=== PATIENT | male | born 1995 | race Caucasian/White ===

== ENCOUNTER 2020-05-12 14:44 | Emergency (ER) | payer OTHER, SELFPAY ==
[2020-05-12 14:54] VITALS: BP 137/81; PULSE 74; RESP 16; TEMP 36.7; O2SAT 96; BMI 29.7
--- NOTE | 2020-05-12 15:31 | XRR_ITS ---
PROCEDURE INFORMATION: Exam: XR Left Hand Exam date and time: 05/12/2020 3:52 PM Age: 25 years old Clinical indication: Injury or trauma; Injury history: Caught thumb in an auger; Initial encounter; Crushing; Hand; Left; Injury date: 05/12/20; Additional info: Trauma thumb TECHNIQUE: Imaging protocol: XR Left hand. Views: 3 or more views. COMPARISON: No relevant prior studies available. FINDINGS: Bones/joints: There is no evidence for acute fracture or malalignment. Soft tissues: Normal. XR/XR hand LT min 3V* [id number] IMPRESSION: No acute findings.
--- NOTE | 2020-05-12 15:53 | W.ED.EXTPRO ---
HPI - Extremity Problem General: Chief complaint: Extremity Injury, Upper Stated complaint: L thumb injury Time Seen by Provider: 05/12/20 15:18 History of Present Illness: HPI Narrative: Patient got left thumb cutting grain big auger today was seen at the clinic down [place] they referred him up here Complaint: extremity pain Onset (ago): hour(s) Pain Consistency: constant Location: left and upper extremity Quality: aching Associated symptoms: Reports no associated symptoms; Deny chest pain, fever(s) or rash Review of Systems Const: Denies: fever(s), chills or body aches Eyes: Denies: change in vision or blurry vision ENMT: Denies: throat pain or nasal congestion Card: Denies: chest pain or dyspnea on exertion Resp: Denies: dyspnea, productive cough or non-productive cough GI: Denies: abdominal pain, nausea or vomiting : Denies: difficulty urinating Musc: Denies: extremity pain Skin/Breast: Reports: other (Left thumb laceration staying from a grain bin auger); Denies: rash Neuro: Denies: headache(s) Psych: Denies: anxiety or depression Devon/Lymph: Denies: easy bruising PFSH ED PFSH: Social History (Updated 05/12/20 @ 14:59 by Matthias Dsouza RN) Smoking and tobacco status: heavy tobacco smoker Alcohol intake: never Substance/Drug Use: never Physical Exam Const: COMMON NORMALS: no acute distress, average body habitus and patient oriented x3 HENMT: COMMON NORMALS: normocephalic HEAD & SCALP: normal to inspection and normocephalic FACE & SINUS: normal facial exam Eye: COMMON NORMALS: conjunctivae normal GENERAL EYE: appearance normal, both eyes and all related structures CONJUNCTIVA: Yes conjunctivae normal Neck/C-Spine: COMMON NORMALS: no JVD Chest: COMMONS NORMALS: normal inspection of the chest Resp: COMMON NORMALS: normal respiratory effort and clear to auscultation bilaterally AUSCULTATION: clear to auscultation bilaterally Cardio: COMMON NORMALS: no JVD, regular rate and regular rhythm RATE: regular rate RHYTHM: regular rhythm GI: COMMON NORMALS: Normal to inspection, nondistended, normoactive bowel sounds present Extremity: COMMON NORMALS: normal to inspection and full ROM Neuro: COMMON NORMALS: patient oriented x3 Skin: NARRATIVE SKIN EXAM: Irregular laceration to the palmar surface of the base of left thumb extending up to the MIP joint. Course Vital Signs: Vital signs: Vital Signs Temperature 98.1 F 05/12/20 14:54 Pulse Rate 74 05/12/20 14:54 Respiratory Rate 16 05/12/20 14:54 Blood Pressure 137/81 05/12/20 14:54 Pulse Oximetry 96 05/12/20 14:54 Discharge Plan Discharge Prescriptions: No Action No Known Home Medications RF: 0 Coding Level of Care Code ED Lime Sludge Kiln Operator for Nidhi Pelayo
[2020-05-12] MEDS: HYDROcodone-acetaminophen 7.5-325 mg Tablet 1 TAB PO (16:45)
[2020-05-12 17:08] VITALS: BP 126/85; PULSE 71; RESP 16; O2SAT 99
[2020-05-12] MEDS: tetanus-dipt-pertussis 0.5 mL SDV IM (17:19)
[2020-05-12] MEDS: lidocaine 1% INJ 20 mL 4 ML INTRADERMA (17:21)
--- NOTE | 2020-05-12 17:22 | PC.NURSE ---
BLACK COLOR RING FOUND IN ROOM AFTER PT LEFT ER ATTEMPTED TO CALL NO ANSWER AND UNABLE TO LEAVE MESSAGE. WILL CONTINUE TO TRY CONTACT PT
== END 2020-05-12 17:11 | disposition home or self-care (01) ==
PROVIDERS: Emergency Provider Nurse Practitioner Family
DX: S61.012A Laceration without foreign body of left thumb without damage to nail, initial encounter (principal); Z23 Encounter for immunization; W30.89XA Contact with other specified agricultural machinery, initial encounter; F17.210 Nicotine dependence, cigarettes, uncomplicated
CPT/HCPCS: 12345; 73130; 90471; 90715; 96372; 99281; 99283

== ENCOUNTER 2020-05-13 13:23 | Emergency (ER) | payer OTHER, SELFPAY ==
[2020-05-13 13:40] VITALS: BP 143/85; PULSE 83; RESP 16; TEMP 37.4; O2SAT 96; BMI 29.7
--- NOTE | 2020-05-13 14:08 | CT_ITS ---
WS: [id number] NONCONTRAST CT OF THE LEFT HAND. TECHNIQUE: Noncontrast CT left hand with coronal and sagittal reformatted images. CLINICAL INFORMATION: trauma swelling and pain COMPARISON: May 12, 2020 DLP: 354.[address] scans at [facility] use at least one of these dose optimization techniques: automat ed exposure control; mA and/or kV adjustment per patient size (includes targeted exams where dose is matched to clinical indication); or iterative reconstruction. FINDINGS: Normal anatomic alignment. No acute fractures. Mild soft tissue edema involving the first digit. No e vidence of drainable abscess or fluid collection. Distal radius and ulna are normal in appearance. Normal radiocarpal joint. Normal scaphoid and lunate . Metacarpals are normal in appearance. Attempted notification Yaw Jean Baptiste DO at 05/13/2020 3:[address]/CT hand LT w con [id number] IMPRESSION: 1. Soft tissue edema first digit. No acute fractures. 2. No visualized foreign bodies. 3. Normal anatomic alignment. Normal distal radius and ulna. 4. Normal scaphoid.
--- NOTE | 2020-05-13 14:29 | ED_ITS ---
HPI - Extremity Problem General: Chief complaint: Extremity Problem,Nontraumatic Stated complaint: left hand pain Time Seen by Provider: 05/13/20 13:49 History of Present Illness: HPI Narrative: 25-year-old male seen yesterday with a thumb laceration. He was seen yesterday returns complaining of swelling and pain. He has not had any drainage from the wound. The some lacerations on the medial aspect of the left thumb. There is been no drainage no redness he denies fever. MD Complaint: extremity pain and extremity swelling Onset (ago): hour(s) Pain Consistency: constant Location: left Quality: aching Radiation: proximal and other (Pain also radiates to second third fingers) Relieving factors: cold therapy and elevation Exacerbating factors: exertion Associated symptoms: Deny chest pain, fever(s), rash or short of breath Review of Systems Const: Denies: fever(s) Card: Denies: chest pain, edema, dyspnea on exertion or orthopnea Resp: Denies: dyspnea, productive cough or non-productive cough GI: Denies: abdominal pain, nausea, vomiting, hematemesis, coffee ground emesis, diarrhea, constipation, bloating, hematochezia or melena : Denies: flank pain, dysuria, urinary frequency or urinary urgency Skin/Breast: Denies: rash or pruritus PFSH ED PFSH: Social History Smoking and tobacco status: heavy tobacco smoker Alcohol intake: never Physical Exam Const: COMMON NORMALS: no acute distress GENERAL APPEARANCE: cooperative and comfortable ORIENTATION/CONSCIOUSNESS: Yes awake, Yes oriented to person, Yes oriented to place and Yes oriented to time HENMT: COMMON NORMALS: normocephalic and atraumatic HEAD & SCALP: normocephalic and atraumatic Eye: COMMON NORMALS: Equal, round and reactive pupils present, EOMs intact bilaterally, conjunctivae normal and no scleral icterus CONJUNCTIVA: Yes conjunctivae normal PUPIL: Yes Equal, round and reactive pupils present Neck/C-Spine: COMMON NORMALS: full ROM, no lymphadenopathy, supple and no JVD Lymph: LYMPHATIC: no lymphadenopathy noted and no lymphedema noted Resp: COMMON NORMALS: normal respiratory effort, No retractions, No use of accessory muscles and clear to auscultation bilaterally AUSCULTATION: clear to auscultation bilaterally Cardio: COMMON NORMALS: no JVD, regular rate, regular rhythm and No murmurs present (Cardio) RATE: regular rate RHYTHM: regular rhythm GI: COMMON NORMALS: Soft to palpation and No hepatosplenomegaly present AUSCULTATION: Yes normoactive bowel sounds PALPATION: Yes Soft to palpation, No Tenderness to palpation present (GI), No Guarding due to palpation present (GI) and Yes No hepatosplenomegaly present OTHER: Thenar eminence of the left hand is swollen almost fluctuant extremely tender he has no pain with passive range of motion at the wrist or flexion or extension of the fingers. There is no drainage no lymphadenopathy suture line is intact and in place. Extremity: COMMON NORMALS: normal to inspection, capillary refill normal, no clubbing, cyanosis or edema, no calf tenderness and no pedal edema Neuro: SENSORIUM/ORIENTATION: Yes oriented to person, Yes oriented to place and Yes oriented to time Skin: COMMON NORMALS: no rashes or lesions noted GENERAL SKIN EXAM: no rashes or lesions noted Course Vital Signs: Vital signs: Vital Signs Temperature 99.3 F 05/13/20 13:40 Pulse Rate 72 05/13/20 16:49 Respiratory Rate 17 05/13/20 16:49 Blood Pressure 140/62 05/13/20 16:49 Pulse Oximetry 98 05/13/20 16:49 MDM - Extremity (Nontraumatic) 2 MDM Narrative: Medical decision making narrative: CT reviewed. Patient does have an elevated white count and currently is on Augmentin. There is no redness or erythema but there is moderate swelling throughout the thenar eminence and is extremely tender to the touch it improves when we ask him to keep it elevated in the exam room. Think he probably just needs to keep this elevated there is not excessive excessive amount of tension on the sutures. Advised him to use a sling to keep the hand above the level of the elbow. Is here the Augmentin if has any drainage or redness return immediately follow-up in another 6 to 9 days for suture removal if has further problems return. Discharge Plan Discharge Patient Disposition: Home Clinical Impression: Laceration of thumb, left Condition: Stable Prescriptions: New hydrocodone-acetaminophen 5-325 mg tablet 1 tab PO Q6H PRN (Reason: pain) Qty: 20 RF: 0 No Action amoxicillin-pot clavulanate [Augmentin] 875-125 mg tablet 1 tab PO BID Qty: 14 RF: 0 tramadol 50 mg tablet 50 mg PO Q6H PRN (Reason: pain) Qty: 14 RF: 0 Referrals: Adeola Cross, DUPLICATING MACHINE SERVICER-C [Primary Care Provider] - Discharge Date/Time: 05/13/20 16:30 Coding Level of Care Code ED Utility Assembler for Chg Fwd Exam Comprehensive
[2020-05-13] MEDS: HYDROcodone-acetaminophen 10-325 mg Tablet 1 TAB PO (14:44)
[2020-05-13] MEDS: iohexol 300 mg/mL 100 mL Btl IV (15:11)
[2020-05-13 16:49] VITALS: BP 140/62; PULSE 72; RESP 17; O2SAT 98
== END 2020-05-13 16:30 | disposition home or self-care (01) ==
PROVIDERS: Emergency Provider Family Medicine; PCP Nurse Practitioner
DX: S61.012A Laceration without foreign body of left thumb without damage to nail, initial encounter (principal); F17.210 Nicotine dependence, cigarettes, uncomplicated; X58.XXXA Exposure to other specified factors, initial encounter
CPT/HCPCS: 12345; 73201; 99282; 99283; Q9967

== ENCOUNTER 2020-05-17 12:03 | Emergency (ER) | payer OTHER, SELFPAY ==
[2020-05-17 12:16] VITALS: BMI 29.0
[2020-05-17 12:19] VITALS: BP 174/109; PULSE 111; RESP 18; TEMP 36.7; O2SAT 98
--- NOTE | 2020-05-17 12:20 | ED_ITS ---
HPI - General Adult General: Chief complaint: General Medical Stated complaint: post finger lac complications Time Seen by Provider: 05/17/20 12:19 History of Present Illness: HPI narrative: 25-year-old male seen within the last week for laceration on his thumb. See him back couple of days later he is reporting a lot of swelling we CT did just showed inflammation there is no evidence of abscess or fracture. We continue to monitor Augmentin he was seen yesterday at his primary care office they reported redness and swelling in the note I switched him from Augmentin to clindamycin to cover better for MRSA. He presents today continued to complain of swelling and pain. Is not been any drainage from the wound. Patient is quite frustrated with his course since the initial injury. Onset (ago): day(s) Location: left and upper extremity (Hand) Radiation: proximal Quality: aching Pain Consistency: constant Associated symptoms: Reports malaise and nausea; Deny chest pain, cough, dyspnea, fevers/chills, rash or seizures Review of Systems Const: Reports: malaise Card: Denies: chest pain Resp: Denies: dyspnea GI: Reports: nausea Skin/Breast: Denies: rash [facility] ED PFSH: Medical History Cellulitis of left thumb Social History Smoking and tobacco status: heavy tobacco smoker Alcohol intake: never Physical Exam Const: COMMON NORMALS: no acute distress GENERAL APPEARANCE: cooperative and comfortable ORIENTATION/CONSCIOUSNESS: Yes awake, Yes oriented to person, Yes oriented to place and Yes oriented to time HENMT: COMMON NORMALS: normocephalic and atraumatic HEAD & SCALP: normocephalic and atraumatic Eye: COMMON NORMALS: Equal, round and reactive pupils present, EOMs intact bilaterally, conjunctivae normal and no scleral icterus CONJUNCTIVA: Yes conjunctivae normal PUPIL: Yes Equal, round and reactive pupils present Lymph: LYMPHATIC: no lymphadenopathy noted and no lymphedema noted OTHER: There is no epitrochlear lymphadenopathy in the left hand Extremity: OTHER: Thumb and thenar eminence show significant amount of swelling and ecchymosis particularly around the area of the laceration. There is no drainage from the wound it is not bright red or inflamed and is not indurated there is no lymphatic streaking. Neuro: SENSORIUM/ORIENTATION: Yes oriented to person, Yes oriented to place and Yes oriented to time Course Vital Signs: Vital signs: Vital Signs Temperature 98.1 F 05/17/20 12:19 Pulse Rate 111 H 05/17/20 12:19 Respiratory Rate 18 05/17/20 12:19 Blood Pressure 174/109 05/17/20 12:19 Pulse Oximetry 98 05/17/20 12:19 MDM - General Adult MDM Narrative: Medical decision making narrative: Patient does obviously have swelling I think this may be even a little more swelling than the last time we seen him. Is restricted mostly to the thumb and thenar eminence. It is not clear that it is all from infection however I suspect a lot of it is from crush injury he does not have any drainage she does not have any lymphadenopathy or lymphatic streaking. He has been on Augmentin and he was changed from Augmentin to clindamycin yesterday to cover better for MRSA. Given the length of time since the original injury I do not think he has MRSA probably would have much more striking physical exam findings. Initially told the patient I did not think it appeared to be infected but that we would check it out. This frustrated him greatly and he began arguing that it likely was infected. I tried to explain to him that we will check that out as well but that we should repeat the CT I had written pain medications form as well as blood cultures and other laboratory tests. My concern is that we continue to treat that that this as it if it is infected when in fact there is something else going on I suspect a lot of this is swelling from the crush injury and we may need to remove the sutures. Patient became quite angry and left AMA. I did warn him that he could lose function of his thumb which would be quite significant. The plan was to evaluate him again if no finding was made to refer him directly from the ER to hand surgery including sending him to [facility] to be seen by the on-call hand surgeon if necessary. Patient does not wish to wait for any kind of evaluation left AGAINST MEDICAL ADVICE even after being warned of the potential for deterioration. We did advise him we would be happy to see him back at any point if he wanted to come back to the emergency room. Discharge Plan Discharge Patient Disposition: Left Against Medical Advice Clinical Impression: Laceration of thumb, left Prescriptions: No Action lidocaine HCl [Xylocaine] 10 mg/mL (1 %) solution 1 ml IM ONCE Qty: 1 RF: 0 clindamycin HCl 300 mg capsule 300 mg PO QID PRN (Reason: cellulitis) 10 Days Qty: 40 RF: 0 hydrocodone-acetaminophen 5-325 mg tablet 1 tab PO Q6H PRN (Reason: pain) Qty: 20 RF: 0 tramadol 50 mg tablet 50 mg PO Q6H PRN (Reason: pain) Qty: 14 RF: 0 Referrals: Adeola Cross, ELECTRICAL ENGINEERING DRAFTING OFFICER-C [Primary Care Provider] - Activity Restrictions/Additional Instructions: Patient left before we are able to complete discharge paperwork. He was advised that he could return anytime if he wished we would be glad to see him back and evaluate him further. Interventions: ED Discharge Assessment Last Done: 05/17/20 12:42 ED Charges Last Done: 05/17/20 12:42 Discharge Date/Time: 05/17/20 12:42 Coding Level of Care Code ED Superintendent Distribution for Nidhi Pelayo
== END 2020-05-17 12:42 | disposition left against medical advice (07) ==
LOC: ER 12:23
PROVIDERS: Emergency Provider Family Medicine; PCP Nurse Practitioner
DX: S61.012A Laceration without foreign body of left thumb without damage to nail, initial encounter (principal); Z53.21 Procedure and treatment not carried out due to patient leaving prior to being seen by health care provider; F17.210 Nicotine dependence, cigarettes, uncomplicated; X58.XXXA Exposure to other specified factors, initial encounter
CPT/HCPCS: 12345; 99281; 99282

== ENCOUNTER 2020-06-24 09:18 | Outpatient (RCR) | payer OTHER, SELFPAY | END 2020-07-14 23:59 | disposition home or self-care (01) | LOC: SOT 09:18 | PROVIDERS: PCP Nurse Practitioner; Referring Provider Orthopaedic Surgery Hand Surgery; Visit Provider Orthopaedic Surgery Hand Surgery | DX: L02.512 Cutaneous abscess of left hand (principal) | CPT/HCPCS: 97018; 97035; 97110; 97140; 97166; 97168 ==

== ENCOUNTER 2020-07-15 06:00 | Outpatient (RCR) | payer OTHER, SELFPAY | END 2020-08-14 23:59 | disposition home or self-care (01) | LOC: SOT 06:00 | PROVIDERS: PCP Nurse Practitioner; Referring Provider Orthopaedic Surgery Hand Surgery; Visit Provider Orthopaedic Surgery Hand Surgery | DX: L02.512 Cutaneous abscess of left hand (principal) | CPT/HCPCS: 97018; 97035; 97110 ==

== ENCOUNTER 2020-08-15 06:00 | Outpatient (RCR) | payer OTHER, SELFPAY | END 2020-08-16 23:00 | disposition home or self-care (01) | LOC: SOT 06:00 | PROVIDERS: PCP Nurse Practitioner; Visit Provider Orthopaedic Surgery Hand Surgery | DX: L02.512 Cutaneous abscess of left hand (principal) | CPT/HCPCS: 97110 ==

== ENCOUNTER → 2020-11-18 14:58 | Outpatient (BNVA) | payer OTHER, SELFPAY | PROVIDERS: PCP Nurse Practitioner Family; Visit Provider Nurse Practitioner Family | DX: J06.9 Acute upper respiratory infection, unspecified (principal); Z20.822 Contact with and (suspected) exposure to COVID-19 | CPT/HCPCS: 87635 ==

== ENCOUNTER → 2021-10-21 10:46 | Outpatient (BNVA) | payer OTHER, SELFPAY | PROVIDERS: PCP Nurse Practitioner Family; Visit Provider Nurse Practitioner Family | DX: G43.909 Migraine, unspecified, not intractable, without status migrainosus (principal); R10.31 Right lower quadrant pain; Z13.6 Encounter for screening for cardiovascular disorders | CPT/HCPCS: 80053; 80061; 81000; 82306; 82607; 83735; 84443; 85025 ==

== ENCOUNTER 2021-12-13 14:00 | Outpatient (CLI) | payer OTHER, SELFPAY ==
--- NOTE | 2021-12-13 14:18 | CT_ITS ---
WS: [id number] CT ABDOMEN AND PELVIS WITH CONTRAST HISTORY: R10.31 - Right lower quadrant pain TECHNIQUE: Imaging performed of the abdomen and pelvis with IV contrast. Single phase imaging of the abdomen. Coronal and sagittal reformats are submitted. All CT scans at [facility] use at [address] one of these dose optimization techniques: automated exposure control; mA and/or kV adjustment per patient size (includes targeted exams where dose is matched to clinical indication); or iterative re construction. IV CONTRAST: Omnipaque 300; 95 mL IV. Oral contrast: Yes. DLP: 947.35 mGy.cm COMPARISON: 07/09/2016 Lower thorax: Lung bases are clear. Heart is normal size. No hiatal hernia. Liver/biliary system: Normal size with no intrahepatic dilatation. Gallbladder: Normal. No gallstones or wall thickening. No pericholecystic fluid. Pancreas: Normal size pancreas and pancreatic duct. No adjacent inflammation. Spleen: Normal size spleen. No mass or infarct. Adrenal glands: Normal. Right kidney: Mild anterior rotation of the RIGHT kidney. No obstruction or mass. Left kidney: Normal. Aorta: Normal. Lymphadenopathy: None. Free fluid: None. GI tract: Stomach is nondistended. No small bowel obstruction. Normal appendix. No submucosal thicken ing or edema. There are several scattered diverticula in the descending and sigmoid colon. No acute i nflammation or diverticulitis. Abdominal wall: Unremarkable abdominal wall. No hernia. Pelvis: No free fluid or adenopathy within the pelvis. Bones: Unremarkable. CT/CT abdomen pelvis w con* [id number] IMPRESSION: 1. No acute abdominal or pelvic abnormalities. 2. Normal appendix. 3. There are a few scattered diverticula in the descending and sigmoid colon. No acute diverticulitis.
[2021-12-13] MEDS: iohexol 300 mg/mL 100 mL Btl IV (15:44)
[2021-12-13] MEDS: iohexol 300 mg/mL 50 mL Btl PO (15:44)
== END 2021-12-13 14:01 | disposition home or self-care (01) ==
LOC: RAD 14:00
PROVIDERS: PCP Nurse Practitioner Family; Visit Provider Nurse Practitioner Family
DX: R10.31 Right lower quadrant pain (principal)
CPT/HCPCS: 74177

== ENCOUNTER 2021-12-14 13:50 | Outpatient (CLI) | payer OTHER, SELFPAY ==
--- NOTE | 2021-12-14 14:04 | MR_ITS ---
WS: [id number] MRI BRAIN WITH AND WITHOUT CONTRAST HISTORY: G43.909 - Migraine, unspecified, not intractable, family history of brain tumor. COMPARISON: None available. TECHNIQUE: Multiplanar imaging performed through the brain with MultiHance 17 ml's IV. No acute infarcts are seen. Ramos-white matter differentiation is well preserved. No susceptibility artifacts or prior lacunar infarcts. Ventricles and extra-axial spaces are normal. Clivus and pituitary gland are normal. Visualized posterior fossa and brainstem are also normal. Postcontrast images are negative for masses or vascular malformations. Dural venous sinuses are normal. Paranasal sinuses: Mild mucoperiosteal thickening throughout the frontal and ethmoid sinuses. No air- fluid levels. Mastoid air cells: Normal. Calvarium and scalp: Normal. MR/MR head wo/w con [id number] IMPRESSION: 1. No acute intracranial hemorrhage or edema. 2. No infarct or enhancing mass. 3. Minimal frontal and ethmoid sinus disease.
[2021-12-14] MEDS: gadobenate dimeglumine 20 mL vial IV (15:02)
== END 2021-12-14 13:51 | disposition home or self-care (01) ==
PROVIDERS: PCP Nurse Practitioner Family; Visit Provider Nurse Practitioner Family
DX: G43.909 Migraine, unspecified, not intractable, without status migrainosus (principal)
CPT/HCPCS: 70553

== ENCOUNTER 2022-08-08 19:46 | Emergency (ER) | payer OTHER, SELFPAY ==
[2022-08-08 20:17] VITALS: BP 124/80; PULSE 77; RESP 18; TEMP 36.8; O2SAT 98; BMI 26.2
--- NOTE | 2022-08-08 21:23 | W.ED.DENTAL ---
HPI - Dental/Oral General: Chief complaint: Dental/Oral Stated complaint: Tooth Ache Time Seen by Provider: 08/08/22 20:21 History of Present Illness: Patient is in today for toothache starting yesterday. He reports that he has terrible teeth and the tooth definitely needs pulled. He denies any fever or chills. He has only taken Tylenol today. Associated symptoms: Denies fever(s) Review of Systems Const: Denies: fever(s) or chills ENMT: Reports: dental pain (Right posterior tooth is broken with dental carry) PFSH ED PFSH: Medical History (Updated 08/08/22 @ 21:34 by TAI Urbina) Cellulitis of left thumb Social History Smoking and tobacco status: current every day smoker Second hand smoke exposure: Yes Alcohol intake: never Caregiver/support person: Yes Lives independently: No Household members: spouse service: No Current occupational status: employed History of recent travel: No Current gender identity: Male Special samaria needs: No Physical Exam Const: COMMON NORMALS: no acute distress (Patient is not in distress but you can tell that he is in pain), patient oriented x3 and alert HENMT: TEETH & GINGIVA IMAGES: 1. 2. dental carries numerous teeth with broken back molars and surrounding gingiva inflamed and tender. No drainable fluctuant abscess appreciated. Resp: COMMON NORMALS: normal respiratory effort and No use of accessory muscles Neuro: COMMON NORMALS: patient oriented x3 SENSORIUM/ORIENTATION: Yes alert Course Vital Signs: Vital signs: Vital Signs Temperature 98.2 F 08/08/22 20:17 Pulse Rate 77 08/08/22 20:17 Respiratory Rate 18 08/08/22 20:17 Blood Pressure 124/80 08/08/22 20:17 Pulse Oximetry 98 08/08/22 20:17 Oxygen Delivery Me thod 08/08/22 20:17 MDM - Dental/Oral Medical Decision Making Patient is in today for dental pain. He has known dental issues. Has not been to a dentist in a while. Physical exam reveals poor dental health. Numerous dental caries and broken teeth. Right posterior molar appears broken with dental carry. Surrounding gingiva is erythematous slightly swollen. No drainable fluctuant abscess is appreciated at this time. We will treat patient with a one-time dose of Toradol IM today send patient home on antibiotic. Advised patient to make follow-up appointment with dental for continued management. Return to the ER as needed for new or worsening symptoms. Patient is agreeable. Discharge Plan Discharge Patient Disposition: Home Clinical Impression: Dental caries, Pain, dental Condition: Stable Prescriptions: New amoxicillin-pot clavulanate 875-125 mg tablet 1 tab PO BID 10 Days Qty: 20 0RF No Action famotidine 20 mg tablet 20 mg PO BID Qty: 60 2RF lidocaine HCl [Xylocaine] 10 mg/mL (1 %) solution 1 ml IM ONCE Qty: 1 0RF ergocalciferol (vitamin D2) 1,250 mcg (50,000 unit) capsule 1,250 mcg PO .weekly Qty: 4 2RF fluticasone propionate [Flonase Allergy Relief] 50 mcg/actuation spray,suspension 2 spray intranasal DAILY Qty: 16 5RF Rx Instructions: administer into each nostril cetirizine [Zyrtec] 10 mg tablet 10 mg PO DAILY PRN (Reason: allergy symptoms) Qty: 30 5RF Discharge Orders: Discharge ED (Routine); Ordered 08/08/22 Ordered By: Zayda Antunez Referrals: Jenny Arzola FNP [Primary Care Provider] - Discharge Diet: Usual diet Discharge Activity: Resume usual activity Patient Instructions: Dental Caries (Cavities), Dental Abscess (ED), Toothache (ED) Activity Restrictions/Additional Instructions: Take antibiotics as directed. I recommend a probiotic to help while on antibiotics. Toradol was administered in here today. You may resume ibuprofen and Tylenol tomorrow. Follow-up with dental ANDREI. Return to the ER for any new or worsening symptoms. Coding Level of Care Code ED Scruff Worker for Nidhi Fwd Exam Expanded Problem Focused
[2022-08-08] MEDS: ketorolac 60 mg/2 mL INJ IM (21:35)
== END 2022-08-08 21:38 | disposition home or self-care (01) ==
PROVIDERS: Emergency Provider Nurse Practitioner Family; PCP Nurse Practitioner Family
DX: K02.9 Dental caries, unspecified (principal); F17.210 Nicotine dependence, cigarettes, uncomplicated
CPT/HCPCS: 96372; 99284; J1885

== ENCOUNTER → 2024-07-22 15:00 | Outpatient (BNVA) | payer OTHER, SELFPAY | PROVIDERS: PCP Nurse Practitioner Family; Visit Provider Nurse Practitioner Family | DX: R19.7 Diarrhea, unspecified (principal); R03.0 Elevated blood-pressure reading, without diagnosis of hypertension; E55.9 Vitamin D deficiency, unspecified; N62 Hypertrophy of breast | CPT/HCPCS: 80053; 80061; 82306; 82607; 84403; 84443; 85025 ==

== ENCOUNTER → 2024-07-23 09:48 | Outpatient (BNVA) | payer OTHER, SELFPAY | PROVIDERS: PCP Nurse Practitioner Family; Visit Provider Nurse Practitioner Family | DX: R19.7 Diarrhea, unspecified (principal) | CPT/HCPCS: 82274; 83630; 87045; 87177; 87209; 87427; 87449; 87493 ==

== ENCOUNTER → 2024-07-25 16:03 | Outpatient (BNVA) | payer OTHER, SELFPAY | PROVIDERS: PCP Nurse Practitioner Family; Visit Provider Nurse Practitioner Family | DX: R30.0 Dysuria (principal) | CPT/HCPCS: 81000 ==

== ENCOUNTER 2024-08-11 08:05 | Outpatient (CLI) | payer OTHER, SELFPAY ==
--- NOTE | 2024-08-11 08:30 | US_ITS ---
WS: [id number] ULTRASOUND BILATERAL BREAST HISTORY: N62 - Hypertrophy of breast COMPARISON: None available. TECHNIQUE: 2-D and Doppler. Ultrasound is directed to the retroareolar regions of each breast as directed by the patient to the a tanmay of palpable abnormality. No soft tissue abnormalities are identified in the retroareolar regions. There is no evidence for manager of network ecomastia or cyst. No skin thickening. US/US breast BI complete [id number] IMPRESSION: BI-RADS: 1- Negative FOLLOW-UP: See Report No additional imaging necessary.
== END 2024-08-11 08:06 | disposition home or self-care (01) ==
LOC: RAD 08:06
PROVIDERS: PCP Nurse Practitioner Family; Visit Provider Nurse Practitioner Family
DX: N62 Hypertrophy of breast (principal)
CPT/HCPCS: 76641

== ENCOUNTER → 2024-08-27 11:44 | Outpatient (BNVA) | payer OTHER, SELFPAY | PROVIDERS: PCP Nurse Practitioner Family; Visit Provider Nurse Practitioner Family | DX: M79.642 Pain in left hand (principal); R79.89 Other specified abnormal findings of blood chemistry; R73.9 Hyperglycemia, unspecified | CPT/HCPCS: 73130; 80053; 83036; 84403; 84550 ==

== ENCOUNTER → 2024-09-17 10:06 | Outpatient (BNVA) | payer OTHER, SELFPAY | PROVIDERS: PCP Nurse Practitioner Family; Visit Provider Nurse Practitioner Family | DX: R79.89 Other specified abnormal findings of blood chemistry (principal) | CPT/HCPCS: 80053 ==

== ENCOUNTER 2024-09-26 05:56 | Outpatient (CLI) | payer OTHER, SELFPAY ==
--- NOTE | 2024-09-26 06:15 | US_ITS ---
WS: [id number] RIGHT UPPER QUADRANT ULTRASOUND HISTORY: R79.89 - Other specified abnormal findings of blood chemi... COMPARISON: None available. Liver: 15.3 cm in length. Normal size liver and echogenicity. No bile duct dilatation or mass. Portal Vein: Normal hepatopetal flow with monophasic waveform. Gallbladder: Normally distended gallbladder with no stones or wall thickening. CBD: 0.4 cm Pancreas: Poorly visualized. Pancreas appears slightly echogenic. Right kidney: 11.7 cm in length. Normal size and echogenicity. No hydronephrosis or mass. Aorta and IVC: Unremarkable abdominal aorta and IVC. No ascites. US/US liver [id number] IMPRESSION: Normal right upper quadrant ultrasound.
== END 2024-09-26 05:57 | disposition home or self-care (01) ==
LOC: RAD 05:57
PROVIDERS: PCP Nurse Practitioner Family; Visit Provider Nurse Practitioner Family
DX: R79.89 Other specified abnormal findings of blood chemistry (principal)
CPT/HCPCS: 76705

== ENCOUNTER → 2024-09-30 14:42 | Outpatient (BNVA) | payer OTHER, SELFPAY | PROVIDERS: PCP Nurse Practitioner Family; Visit Provider Physician Assistant | DX: M06.4 Inflammatory polyarthropathy | CPT/HCPCS: 36415; 80053; 84550; 85025; 85651; 86140; 86200; 86225; 86235; 86431 ==

== ENCOUNTER → 2024-12-29 11:14 | Outpatient (BNVA) | payer OTHER, SELFPAY | PROVIDERS: PCP Nurse Practitioner Family; Visit Provider Nurse Practitioner Family | DX: E29.1 Testicular hypofunction (principal) | CPT/HCPCS: 80076; 82040; 82670; 84270; 84403; 85025 ==

== ENCOUNTER → 2025-06-29 09:17 | Outpatient (BNVA) | payer OTHER, SELFPAY | PROVIDERS: PCP Nurse Practitioner Family; Visit Provider Nurse Practitioner Family | DX: R79.89 Other specified abnormal findings of blood chemistry (principal) | CPT/HCPCS: 80076; 82040; 82670; 84270; 84403; 85025 ==